=== PATIENT | male | born 1955 | race Caucasian/White ===

== ENCOUNTER 2019-06-15 21:18 | Inpatient (IN) | payer OTHER ==
[~2019-06-15] VITALS: Ht 177.8 cm; Wt 85.6 kg
[2019-06-15 21:22] VITALS: BP 135/90
[2019-06-15] MEDS ORDERED: AMLODIPINE-VAL1 EACH PO (21:50)
[2019-06-15] MEDS ORDERED: LIPITOR80 MG PO (21:50)
[2019-06-15 22:29] LABS: ABSOLUTE NEUTROPHILS 10.7 thou/uL (1.4-8.2); BASOPHILS 0.6 % (0.0-2.0); EOSINOPHILS 0.2 % (0.0-3.0); HEMATOCRIT 36.6 % (42.0-52.0); HEMOGLOBIN 12.5 gm/dL (14.0-18.0); LYMPHOCYTES 9.1 % (24.0-44.0); MCH 28.6 pg (26.0-34.0); MCV 84.2 fL (80.0-100.0); MONOCYTES 6.7 % (1.0-8.0); PLATELET COUNT 217 thou/uL (150-400); POLYS 83.4 % (36.0-66.0); RBC 4.35 mil/uL (4.50-6.00); RDW 13.3 % (10.5-14.5); WBC 12.9 thou/uL (4.0-11.0)
[2019-06-15 22:38] LABS: ANION GAP 12 mmol/L (7-16); BUN 21 mg/dL (7-18); CALCIUM 9.5 mg/dL (8.5-10.1); CHLORIDE 106 mmol/L (98-107); CO2 23 mmol/L (21-32); CREATININE 1.3 mg/dL (0.7-1.3); GLUCOSE 108 mg/dL (74-106); POTASSIUM 3.9 mmol/L (3.5-5.1); SODIUM 141 mmol/L (136-145)
[2019-06-15 22:45] LABS: ALBUMIN 4.1 g/dL (3.4-5.0); SALICYLATE < 2.8 mg/dL (2.8-20.0); SGOT 30 U/L (15-37); SGPT 38 U/L (30-65); TOTAL BILIRUBIN 0.5 mg/dL (<0.1-1.0); TOTAL PROTEIN 6.8 g/dL (6.4-8.2)
[2019-06-15 22:49] LABS: APTT 23.1 Seconds (24.5-32.8); PROTIME 10.5 Seconds (9.3-11.4)
[2019-06-15 22:56] LABS: URINE BILIRUBIN NEGATIVE (Negative); URINE BLOOD 3+ (Negative); URINE CLARITY SL CLOUDY; URINE COLOR YELLOW; URINE GLUCOSE-RANDOM* NEGATIVE (Negative); URINE KETONES NEGATIVE (Negative); URINE LEUKOCYTES NEGATIVE (Negative); URINE NITRITE NEGATIVE (Negative); URINE PROTEIN (DIPSTICK) 1+ (Negative); URINE SPECIFIC GRAVITY >= 1.030 (1.005-1.035); URINE UROBILINOGEN 0.2 E.U./dl (0.2-1.0)
[2019-06-15 23:04] LABS: AMP/METHAMP Negative (Negative); BARBITURATES Negative (Negative); BENZODIAZEPINES Negative (Negative); COCAINE Negative (Negative); METHADONE Negative (Negative); OPIATES Negative (Negative); PCP Negative (Negative)
[2019-06-15 23:10] LABS: BACTERIA 1-9 Few /HPF (None Seen); HYALINE CASTS 0-3 Few /LPF (None Seen); MUCUS 4-6 Moderate strn/LPF (None Seen); SQUAMOUS 0-3 Few /LPF (0-3); URINE WBC 0-5 Rare /HPF (0-5)
[2019-06-15 23:11] LABS: CELLULAR CASTS 0-3 Few /LPF (None Seen); CRYSTALS None Seen /LPF (None Seen); FINE GRANULAR CASTS 0-3 Few /LPF (None Seen)
[2019-06-16] VITALS (28 sets, daily range): BP systolic 105–148; BP diastolic 61–99
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
[2019-06-16 05:55] LABS: HEMATOCRIT 32.5 % (42.0-52.0)
[2019-06-16 12:51] LABS: HEMATOCRIT 37.7 % (42.0-52.0); HEMOGLOBIN 12.7 gm/dL (14.0-18.0)
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
[2019-06-16 18:00] LABS: HEMOGLOBIN 12.1 gm/dL (14.0-18.0)
--- NOTE | 2019-06-16 18:45 | NUR ---
END OF SHIFT NOTE. PT STABLE. HH STABLE. NO HEAD BLEED. SITTING UP IN CHAIR VSS. ROOM AIR. TOLORATING CLEAR LIQUIDS.
[2019-06-17] VITALS (13 sets, daily range): BP systolic 111–163; BP diastolic 62–130
[2019-06-17 00:25] LABS: HEMATOCRIT 33.5 % (42.0-52.0); HEMOGLOBIN 11.4 gm/dL (14.0-18.0)
--- NOTE | 2019-06-17 06:11 | NUR ---
PT REMAINS STABLE , ALERT AND ORIENTED X4 H&H AND VITALS STABLE. NO ACUTE CHANGES IN PT'S CONDITION.
[2019-06-17] MEDS ORDERED: HYDROCODON-ACE1 EAC7 PO (06:22)
[2019-06-17] MEDS ORDERED: COLACE 100 MG100 MG PO (06:22)
[2019-06-17] MEDS ORDERED: MIRALAX17 GM PO (06:22)
[2019-06-17 06:46] LABS: HEMATOCRIT 33.9 % (42.0-52.0); HEMOGLOBIN 11.6 gm/dL (14.0-18.0); MCHC 34.2 g/dL (28.0-37.0); MCV 84.9 fL (80.0-100.0); RBC 3.99 mil/uL (4.50-6.00); RDW 13.5 % (10.5-14.5)
[2019-06-17 06:58] LABS: ALBUMIN 3.4 g/dL (3.4-5.0); CALCIUM 8.6 mg/dL (8.5-10.1); MAGNESIUM 2.1 mg/dL (1.8-2.4); PHOSPHORUS 3.3 mg/dL (2.5-4.9); POTASSIUM 4.1 mmol/L (3.5-5.1)
--- NOTE | 2019-06-17 20:25 | NUR ---
LATE ENTRY FOR 0900-ASSUMMED CARE OF PT W JESSICA ESPANA.--VW ~1100 DISCHARGED HOME W .INSTRUCTIONS GIVEN BY JESSICA ESPANA.--VW
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
== END 2019-06-17 10:30 | disposition home or self-care (01) | DRG 964 ==
LOC: ER 21:18 → EROBS 06-16 00:54 → ICU 06-16 02:02
PROVIDERS: Emergency Medicine; Surgery; ADMIT Surgery
DX: S06.369A Traumatic hemorrhage of cerebrum, unspecified, with loss of consciousness of unspecified duration, initial encounter (principal); S22.32XA Fracture of one rib, left side, initial encounter for closed fracture; S36.039A Unspecified laceration of spleen, initial encounter; S22.050A Wedge compression fracture of T5-T6 vertebra, initial encounter for closed fracture; D62 Acute posthemorrhagic anemia; I10 Essential (primary) hypertension; E78.00 Pure hypercholesterolemia, unspecified; R31.9 Hematuria, unspecified; E78.5 Hyperlipidemia, unspecified; V89.2XXA Person injured in unspecified motor-vehicle accident, traffic, initial encounter; Y93.89 Activity, other specified; Y92.89 Other specified places as the place of occurrence of the external cause; Y99.8 Other external cause status
CPT/HCPCS: 10078